=== PATIENT | female | born 1990 | race Two or more races ===

== ENCOUNTER 2025-08-14 06:46 | Inpatient (IN) | payer OTHER ==
[~2025-08-14] VITALS: Ht 170.2 cm; Wt 3.6 kg
[2025-08-14 07:19] VITALS: BP 113/72
[2025-08-14] MEDS ORDERED: RINGERS SOLUTION,LACTATED 1,000 ML IV SCH (07:45)
[2025-08-14] MEDS ORDERED: CEFAZOLIN SODIUM 1,000 MG VIAL IV SCH (07:45)
[2025-08-14 08:32] LABS: BASO % 0.5 % (0.1-1.2); EOS # 0.10 (0.04-0.54); EOS % 1.3 % (0.7-7.0); LYMPH # 1.53 (1.18-3.74); LYMPH % 20.4 % (19.3-53.1); MEAN PLATELET VOLUME 10.60 fl (9.4-12.4); MONO # 0.65 (0.24-0.82); MONO % 8.7 % (4.7-12.5); NEUT # 5.07 (1.56-6.13); NEUT % 67.6 % (34.0-71.1); RED CELL DISTRIBUTION WIDTH 13.2 % (11.6-14.4)
[2025-08-14 08:49] LABS: URINE APPEARANCE Clear; URINE BILIRRUBIN Negative (NEGATIVE); URINE BLOOD Negative; URINE COLOR Yellow; URINE GLUCOSE Negative (NEGATIVE); URINE KETONE Negative (NEGATIVE); URINE LEUKOCYTE Trace; URINE NITRATE Negative; URINE PROTEIN Trace (NEGATIVE); URINE UROBILINOGEN 0.2 E.U./dl
[2025-08-14 08:53] LABS: URINE EPITHELIAL CELLS 118.0 uL (0.0-38.8); URINE RBC 5.3 uL (0.0-20.8); URINE WBC 41.0 uL (0.0-23.2)
[2025-08-14 08:57] LABS: INR 0.95
[2025-08-14 09:25] LABS: URINE CAST 0.28 uL (0.0-1.40)
[2025-08-14 09:32] LABS: ALT/SGPT 15.0 U/L (12-78); AST/SGOT 14.0 U/L (15-37); BILIRUBIN TOTAL 0.28 mg/dL (0.3-1.2); BUN CREA RATIO 23.0 (7.0-25.0); CREATININE SERUM 0.31 mg/dL (0.55-1.02); GFR 245.2; GLOBULINA 3.3 G/DL (2.4-3.5); GLUCOSE FASTING 72.0 mg/dL (65-100); OSMOLALITY SERUM 278.0 MOSM/KG (275-295)
[2025-08-14] MEDS ORDERED: ERYTHROMYCIN BASE OPHT 1GM EACH TUBE OP ONE (09:46)
[2025-08-14] MEDS ORDERED: OXYTOCIN 10 UNITS/ML VIAL ONE (09:46)
[2025-08-14] MEDS ORDERED: KETOROLAC TROMETHAMINE 60 MG VIAL IM NR (12:00)
[2025-08-14] MEDS ORDERED: MORPHINE SULFATE 4 MG/ML VIAL IV SCH (13:00)
[2025-08-14] MEDS ORDERED: KETOROLAC TROMETHAMINE 60 MG VIAL IM ONE (13:06)
[2025-08-14 13:50] VITALS: BP 107/70
[2025-08-14 15:51] VITALS: BP 118/79
[2025-08-14 18:22] LABS: BASO % 0.2 % (0.1-1.2); EOS # 0.02 (0.04-0.54); EOS % 0.1 % (0.7-7.0); LYMPH # 1.36 (1.18-3.74); LYMPH % 10.2 % (19.3-53.1); MEAN PLATELET VOLUME 10.80 fl (9.4-12.4); MONO # 0.68 (0.24-0.82); MONO % 5.1 % (4.7-12.5); NEUT # 11.15 (1.56-6.13); NEUT % 83.4 % (34.0-71.1); RED CELL DISTRIBUTION WIDTH 13.2 % (11.6-14.4)
[2025-08-14 20:40] VITALS: BP 126/83
[2025-08-15] VITALS: BP 111/70
[2025-08-15] MEDS ORDERED: OxyCODONE HCL 5 MG TABLET (ROXICODONE) PO SCH (05:00)
[2025-08-15] MEDS ORDERED: FF) RHO(D) IMMUNE GLOBULIN (POM) IM ONE (07:15)
[2025-08-15] MEDS ORDERED: SIMETHICONE 125 MG CAPSULE PO SCH (09:00)
[2025-08-15] MEDS ORDERED: DOCUSATE SODIUM 100MG CAP PO SCH (09:00)
[2025-08-15] MEDS ORDERED: PNV,CALCIUM 72/IRON/FOLIC ACID 1 TAB TABLET PO SCH (09:00)
[2025-08-15 09:06] VITALS: BP 119/75; O2SAT 99
[2025-08-16 00:24] VITALS: BP 138/81
[2025-08-16 08:52] VITALS: BP 116/77
[2025-08-16 17:10] VITALS: BP 99/62
[2025-08-17 00:29] VITALS: BP 102/67
[2025-08-17] MEDS ORDERED: BISACODYL 10 MG/SUPP.RECT SUPP.RECT RECTAL STA (07:14)
[2025-08-17 09:00] VITALS: BP 110/71
== END 2025-08-17 11:35 | disposition home or self-care (01) | DRG 788 ==
LOC: OB/GYN 06:46 → LDR 06:46 → O/R 10:21 → OB/GYN 11:51
PROVIDERS: ADMIT Obstetrics & Gynecology; ATTEND Obstetrics & Gynecology
PROC: 4A1HXCZ Monitoring of Products of Conception, Cardiac Rate, External Approach (ICD-10-PCS; 2025-08-14)
PROC: 10D00Z1 Extraction of Products of Conception, Low, Open Approach (ICD-10-PCS; principal; 2025-08-14 09:45)
DX: O44.03 Complete placenta previa NOS or without hemorrhage, third trimester (principal); Z3A.39 39 weeks gestation of pregnancy; Z37.0 Single live birth